=== PATIENT | male | born 1960 | race Caucasian/White ===

== ENCOUNTER → 2016-07-18 | Day surgery (SDC) | payer BC ==
[~2016-07-18] MED LIST: ATROPINE SULFATE 1% OPHT SOLN 2 ML BTL ONE; BUPIVACAINE HCL PF 0.25% 30 ML VIAL ONE; BUPIVACAINE HCL PF 0.75% 30 ML VIAL ONE; DEXAMETHASONE SOD PHOS 4 MG/ML VIAL ONE; EPINEPHrine HCL (1:1000) 1 MG/ML VIAL ONE; LACTATED RINGER'S 1000 ML INJ 1,000 ML ONE; LIDOCAINE 1.5%/EPINEPHrine 1:200,000 PF SOLN 30 ML AMP ONE; MIDAZOLAM HCL 5 MG/ML VIAL (1 ML) ONE; NEOMYCIN/POLYMYXIN/DEXAMETHASONE OPTH OINT 3.5 GM TUBE ONE; PROPOFOL 200 MG/20 ML AMP IV ONE; SODIUM CHLORIDE 0.9% INJ 10 ML ONE; ceFAZolin 2 GM PREMIX 50 ML ONE; ceFAZolin INJ 1,000 MG VIAL ONE
--- NOTE | 2016-07-24 07:25 | MP ---
cc: DEBORA RED DPM DATE OF SURGERY 07/18/2016 PREOPERATIVE DIAGNOSIS Lisfranc's fracture-dislocation., joint pain POSTOPERATIVE DIAGNOSIS Lisfranc's fracture-dislocation, joint pain PROCEDURES PERFORMED Partial Lisfranc's fusion with modified lapidus. SPECIMEN None. ESTIMATED BLOOD LOSS Less than 40 mL. MATERIALS USED [employer] Ortholoc Lapidus Plate with 2.7 and 3.5 locking and nonlocking screws as well as 3.5 cannulated Dart-Fire screws as well as lesser metatarsal compression plate. Total of 10 screws and two plates. ANESTHESIA General with popliteal block. TOURNIQUET TIME 134 minutes at a setting of 220 mmHg. DISPOSITION PACU, then D/C home once stable per same-day surgery criteria. JUSTIFICATION FOR PROCEDURE This is a pleasant 56-year-old male who sustained a single episode resulting in a Lisfranc's fracture dislocation. Radiographic findings showed instability at the level of the Lisfranc's joint. MRI further verified the extent of the injury. 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 I counseled the patient upon reviewing the x-ray findings and the MRI findings. My biggest concern is that the patient has neuropathy and this kind of fracture dislocation can turn into a Charcot event in which the entire foot can collapse making it so that the foot is a non-ambulatory appendage. I explained to the patient we could cast him for 8-12 weeks in hopes that the bone unites or we move forward with a primary fusion of the Lisfranc's joint to weight instability. The patient understood there are risks associated with the surgery including but not limited to painful hardware, nonunion, malunion, wound dehiscence, need for more surgery at a later date. No guarantees were given or implied regarding the outcome. PROCEDURE IN DETAIL Under mild sedation the patient was brought into the operating room, placed on the operating table in the supine position. Following the induction of general anesthesia, the right lower extremity was scrubbed, prepped and draped in the usual aseptic fashion. The right foot was elevated, exsanguinated and the previously placed midcalf tourniquet was inflated at 250 mmHg. Fluoroscopy was used to stress the Lisfranc's joint. There is obvious instability and motion at the level of the second metatarsal/first metatarsal base. The third and fourth metatarsals as well as the cuneiform seen to be well-seated within their anatomical position. An incision was made over the dorsal aspect of the first metatarsal slightly medial at the level of the first cuneiform base. Sharp and blunt dissection was carried down medial to the extensor hallucis longus tendon. Sharp and blunt dissection was carried down to the level of the first metatarsal medial cuneiform joint. The articular surface was then transected utilizing power instrumentation to further contour and shorten the first metatarsal aiding in reduction of a hallux abductovalgus to prevent pressure to the patient's second and third metatarsals. This was then fixated utilizing a distal dorsal to plantar proximal interfragmentary compression screw. At this point in time an incision was made over the lateral aspect of the second metatarsal/second cuneiform joint. Sharp and blunt dissection was carefully made down revealing the extensor digitorum longus. Sharp dissection was carried down through the fascial plane deep to the neurovascular bundle. Fragmentation and a combination of the second metatarsal was appreciated. The comminuted second met base was then transected. Any articular surface that was visualized of the head of the second cuneiform and the second met base was transected. Next, utilizing subchondral drilling the joint surface was prepared for fusion. Utilizing autograft from the patient's first medial eminence, this was placed within the fusion site along with demineralized bone matrix. A percutaneous wire was then placed in temporary fixation after using a large tenaculum clamp, securing the base of the second metatarsal and the medial aspect of the medial cuneiform. This aligned the second metatarsal base for fusion. Next, a plate was then placed dorsally. It was anchored distally using locking screws and then the compression ramp was then utilized to further compress the arthrodesis site of the second metatarsal base and second cuneiform. A final fourth screw was then placed being careful to avoid the articular surface of the navicular second cuneiform. There was noted to be anatomic alignment of the Lisfranc's joint fusion without any gapping. Next, a plate was then placed on the medial aspect of the first metatarsal medial cuneiform joint. It was then anchored distally utilizing two locking screws, utilizing the compression ramp distally. It was then used to compress the first metatarsal medial cuneiform joint. The most distal aspect of the plate had a screw that was placed all the way through the first metatarsal base anchoring it to the second metatarsal base further securing the construct of the Lisfranc's fusion and the final screw was then placed within the distal aspect of the plate. There was noted to be excellent alignment, stability and the deep fascial and periosteal layer was closed utilizing Vicryl. The deep dermis was closed utilizing Monocryl. The skin was closed utilizing nylon. Upon relieving the tourniquet there is a prompt hyperemic response to all digits without any delayed capillary fill time. A bulky bandage was placed. The patient was positioned within a Lees' compressive dressing and a posterior splint. He was transferred from OR to PACU with all vital signs stable. He is strict non-weightbearing. I will see the patient within 3-5 days. DANTE Farrell/BAUTISTA /3:54 PM /7:03 AM [email or web address]
== END | disposition home or self-care (01) ==
LOC: ESDC 11:04
PROVIDERS: ATTEND Podiatrist Foot & Ankle Surgery
DX: S93.324A Dislocation of tarsometatarsal joint of right foot, initial encounter (principal)
CPT/HCPCS: 01480; 28297; 28615; 64445; 73630; 76000; C1713; J0171; J0690; J2250; J3010; J7120; J1100